=== PATIENT | male | born 1995 | race Caucasian/White ===

== ENCOUNTER 2020-02-25 10:45 | Inpatient (IN) | payer BC, OTHER ==
[2020-02-25] VITALS (15 sets, daily range): BP systolic 105–127; BP diastolic 54–77
[~2020-02-25] VITALS: Ht 182 cm; Wt 99.5 kg
--- NOTE | 2020-02-25 10:45 | NUR ---
PT ARRIVED PER EMS, PT FOUND UNRESPONSIVE AT HOME. PT HAS POSSIBLE TAKEN COCAINE,POT AND XANAX REPORTED BY PARENTS. PT PUPILS ARE LARGE AND DILATED. RR 8. PT HAS IV L AC BY EMS, PT HAS NS AND D10 RUNNING BY EMS. PT HAS BS 61 AT SCENE. PT ETCO2-10. RT HERE DR IN ROOM UPON ARRIVAL. PLAN TO INTUBATE 1050 ETOMIDATE 40MG IV GIVEN ORDERED. 1053 IV #20 STARTED IN R UPPER ARM LABS DRAWN. ROCURONIUM 50MG IV GIVEN ORDERED 1055 PT INTUBATED #8.0 ET TUBE 23@TEETH BY DR FRIAS. +BREATH SOUNDS AND ECO2 38 AT THIS X. 1059 #16 OG INSERTED AND SECURED TO ET TUBE. 1101 LAL #16 INSERTED W CLEAR URINE RETURNED, UA SENT 1103 PROPOFOL 30MCG/KG/MIN-18MLS PER HR 1107 ABG'S DRAWN BY RT 1118 PROPAFOL INCREASED TO 40MCG/KG/MIN 1145 PT TO GO TO CT WHEN SUCTIONED MOVING HANDS AROUND, VERSED 5MG IV GIVEN ORDERED. PROPAFOL INCREASED TO 50MCG/KG/MIN [address]
[2020-02-25] MEDS ORDERED: PROPOFOL DRIP (ICU) 100 ML IV ONE (10:55)
--- NOTE | 2020-02-25 11:05 | NUR ---
DR FRIAS SPOKE TO FAMILY ON PHONE
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
[2020-02-25 11:12] LABS: BASOPHILS % (AUTO) 0 % (0-10); EOSINOPHILS # (AUTO) 0.1 10^3/uL (0.0-0.3); EOSINOPHILS % (AUTO) 1 % (0-10); HEMATOCRIT 44 % (40-54); HEMOGLOBIN 15.3 G/DL (13.3-17.7); LYMPHOCYTES # (AUTO) 0.9 X 10^3 (1.0-4.0); LYMPHOCYTES % (AUTO) 10 % (12-44); MEAN CORPUSCULAR HEMOGLOBIN 31 PG (25-34); MEAN CORPUSCULAR HGB CONC 35 G/DL (32-36); MEAN CORPUSCULAR VOLUME 88 FL (80-99); MEAN PLATELET VOLUME 11.2 FL (7.4-10.4); MONOCYTES # (AUTO) 0.5 X 10^3 (0.0-1.0); MONOCYTES % (AUTO) 6 % (0-12); NEUTROPHILS # (AUTO) 7.2 X 10^3 (1.8-7.8); NEUTROPHILS % (AUTO) 83 % (42-75); PLATELET COUNT 197 10^3/uL (130-400); RED CELL DISTRIBUTION WIDTH 14.1 % (10.0-14.5); WHITE BLOOD COUNT 8.7 10^3/uL (4.3-11.0)
[2020-02-25 11:18] LABS: BILIRUBIN,URINE NEGATIVE (NEGATIVE); CLARITY,URINE CLEAR; COLOR,URINE YELLOW; GLUCOSE, URINE (UA) NEGATIVE (NEGATIVE); KETONES,URINE NEGATIVE (NEGATIVE); LEUKOCYTE ESTERASE ,URINE NEGATIVE (NEGATIVE); NITRITE,URINE NEGATIVE (NEGATIVE); PH,URINE 5.5 (5-9); PROTEIN,URINE NEGATIVE (NEGATIVE)
[2020-02-25 11:20] LABS: ABG BASE EXCESS 1.5 MMOL/L (-2.5-2.5); ABG OXYGEN SATURATION 97 % (94-100); ABG PCO2 48 MMHG (35-45); ABG PH 7.36 (7.37-7.43); ABG PO2 97 MMHG (79-93); ABG TCO2 27.9 MMOL/L (21.0-31.0); ALLENS TEST YES-POS; INSPIRED O2 40%; PATIENT TEMP 36.7; VENTILATOR YES
[2020-02-25 11:25] LABS: BACTERIA,URINE NEGATIVE /HPF; SQUAMOUS EPITHELIAL CELL,UR RARE /HPF
[2020-02-25] MEDS ORDERED: LACTATED RINGERS 1,000 ML IV ONE (11:26)
[2020-02-25 11:32] LABS: AMPHETAMINE SCREEN, URINE NEGATIVE (NEGATIVE); BARBITURATE SCREEN URINE NEGATIVE (NEGATIVE); BENZODIAZEPINES SCREEN URINE POSITIVE (NEGATIVE); CANNABINOID SCREEN, URINE POSITIVE (NEGATIVE); COCAINE SCREEN URINE POSITIVE (NEGATIVE); METHADONE STAT NEGATIVE (NEGATIVE); METHAMPHETAMINE SCREEN URINE S NEGATIVE (NEGATIVE); OPIATE SCREEN URINE NEGATIVE (NEGATIVE); OXYCODONE STAT NEGATIVE (NEGATIVE); PROPOXYPHENE STAT NEGATIVE (NEGATIVE); TRICYCLIC ANTIDEPRESSANTS SCRE NEGATIVE (NEGATIVE)
[2020-02-25 11:37] LABS: ALBUMIN 4.7 GM/DL (3.2-4.5); CHLORIDE 105 MMOL/L (98-107); POTASSIUM 4.4 MMOL/L (3.6-5.0); SODIUM 141 MMOL/L (135-145)
[2020-02-25 11:38] LABS: CALCIUM 9.7 MG/DL (8.5-10.1)
[2020-02-25 11:39] LABS: GLUCOSE 140 MG/DL (70-105); TOTAL PROTEIN 7.6 GM/DL (6.4-8.2)
[2020-02-25 11:40] LABS: CARBON DIOXIDE 26 MMOL/L (21-32)
[2020-02-25 11:41] LABS: BILIRUBIN,TOTAL 0.9 MG/DL (0.1-1.0)
[2020-02-25 11:43] LABS: ALKALINE PHOSPHATASE 68 U/L (40-136); CREATININE SERUM 1.04 MG/DL (0.60-1.30); GFR ESTIMATED > 60
[2020-02-25 11:44] LABS: BUN/CREATININE RATIO 9
[2020-02-25 11:46] LABS: ALANINE AMINOTRANSFERASE 20 U/L (0-55); MAGNESIUM 1.9 MG/DL (1.6-2.4); SALICYLATE < 5.0 MG/DL (5.0-20.0)
--- NOTE | 2020-02-25 11:51 | Diagnostic Imaging Report ---
INDICATION: Unresponsive. FINDINGS: ET tube tip lower thoracic trachea. OG catheter goes into the upper stomach. No effusion or pneumothorax. No free air beneath the diaphragm. Heart size upper limits. There is some mild perihilar vascular congestion and mild partial atelectasis. IMPRESSION: Upper limits heart size and central vasculature caliber. Mild atelectasis. Support apparatus projecting in good alignment. Dictated by: Dictated on workstation # [id number]
[2020-02-25 11:54] LABS: ACETAMINOPHEN < 10 UG/ML (10-30)
--- NOTE | 2020-02-25 11:55 | NUR ---
NS 1000CC FROM EMS INFUSED. LAC RINGERS STARTED
--- OUTSIDE RECORDS SUMMARY | 2020-02-25 11:56 | XMS REPORT | Continuity of Care Document ---
Author Organization Unknown Address Unknown Phone Unavailable Allergies Active Description Code Type Severity Reaction Onset Reported/Identified Relationship to Patient Clinical Status Yes NO KNOWN DRUG ALLERGIES UNKNOWN UNKNOWN Medications There is no data. Problems Date Dx Coded Attending Type Code Diagnosis Diagnosed By 11/10/2018 W 924.3 CONT USION OF TOE 11/10/2018 W S90.119A C ONTUSION OF UNSPECIFIED GREAT TOE WITHOUT DAMAGE TO NAIL, INITIAL ENCOUNTER 03/04/2019 Fidencio Camilo 381.01 ACUTE SEROUS OTITIS MEDIA 03/04/2019 Fidencio Camilo H65.02 ACUTE SEROUS OTITIS MEDIA, LEFT EAR 08/20/2019 Josh Stevenson 608.1 SPERMATOCELE 08/20/2019 Josh Stevenson S06.2X9D DIFFUSE TBI W LOSS OF CONSCIOUSNESS OF UNSP DURATION, SUBS 08/20/2019 Josh Stevenson T07.XXXD UNSPECIFIED MULTIPLE INJURIES, SUBSEQUENT ENCOUNTER 08/20/2019 Josh Stevenson V58.89 ENCOUNTER FOR OTHER SPECIFIED AFTERCARE 08/21/2019 Josh Stevenson 608.1 SPERMATOCELE 08/21/2019 Josh Stevenson S06.2X9D DIFFUSE TBI W LOSS OF CONSCIOUSNESS OF UNSP DURATION, SUBS 08/21/2019 Josh Stevenson T07.XXXD UNSPECIFIED MULTIPLE INJURIES, SUBSEQUENT ENCOUNTER 08/21/2019 Josh Stevenson V58.89 ENCOUNTER FOR OTHER SPECIFIED AFTERCARE Procedures There is no data. Results Test Result Range Other Culture - 04/28/17 16:47 PRELIM CULTURE RESULTS Moderate Group B Stre [id number] lab if sensitivity needed FINAL CULTURE RESULTS Moderate Group B Beta Hemolytic [id number] Further Workup done MEDIA PLATED Setup at 17:13 on 04/28/2017 Encounters ACCT No. Visit Date/Time Discharge Status Pt. Type Provider Facility Loc./Unit Complaint [id number] 11/29/2019 11:38:00 11/29/2019 23:59 :00 DIS Outpatient LANNY MARIE [id number] 08/14/2019 14:11:00 08/21/2019 15:48: 00 DIS Outpatient Josh Stevenson [id number] 08/13/2019 12:55:00 08/13/2019 23:59: 00 DIS Outpatient Josh Stevenson [id number] 08/13/2019 09:40:00 08/13/2019 23:59: 00 DIS Outpatient Josh Stevenson [id number] 03/04/2019 15:51:00 03/04/2019 16:40: 00 [facility] [id number] 04/28/2017 16:46:00 04/28/2017 23:59: 00 DIS Outpatient TannerLorenza [id number] 08/29/2019 13:56:09 Document Registration [id number] 11/10/2018 13:08:00 Document Registration [id number] 02/25/2020 11:45:[address] Inpatient MEJIA POPE, JUSTYNA Miller [facility] ICU ENCEPHALOPATHY;DRUG O/D
--- NOTE | 2020-02-25 12:15 | Diagnostic Imaging Report ---
PROCEDURE: CT head without contrast. TECHNIQUE: Multiple contiguous axial images were obtained through the brain without the use of intravenous contrast. Auto Exposure Controls were utilized during the CT exam to meet ALARA standards for radiation dose reduction. INDICATION: Unresponsive and overdose. COMPARISON: No prior studies are available for comparison. FINDINGS: There is an area of encephalomalacia in the left frontal lobe, likely from prior infarct. Small area of low density in the right posterior centrum semiovale as well as the right frontal lobe periventricular white matter is seen which appears chronic. No definite sulcal effacement or midline shift is detected. No acute intra-axial or extra-axial hemorrhage is detected. Cisterns are patent. Visualized paranasal sinuses are clear. IMPRESSION: Chronic changes. No acute intracranial process is detected. Dictated by: Dictated on workstation # [id number]
--- NOTE | 2020-02-25 12:35 | NUR ---
PT TO ICU BY CART, PT HAS LAC RINGERS INFUSING, PROPAFOL AT 50MCG/KG/MIN INFUSING PER PUMP. PT ON PORTABLE VENT, OG IN PLACE, LAL IN PLACE. DR FRIAS SPOKE W FAMILY CO PT CARE
[2020-02-25] MEDS ORDERED: DexMEDEtomidine 250 ML DRIP 250 ML IV ONE (12:55)
[2020-02-25] MEDS ORDERED: ONDANSETRON 4 MG/2 ML (SDV) Z0FRAN IV PRN (13:00)
[2020-02-25] MEDS ORDERED: ACETAMINOPHEN 650 MG SUPP (TYLENOL) PR PRN (13:00)
[2020-02-25] MEDS ORDERED: CATHETER FLUSH 10 ML SYR IV PRN (13:15)
[2020-02-25] MEDS ORDERED: DexMEDEtomidine 250 ML DRIP 250 ML IV SCH (13:17)
[2020-02-25] MEDS: 1/2 NS IV SOLUTION 1,000 ML IV SCH ×2 (13:19→21:44)
--- NOTE | 2020-02-25 13:26 | NUR ---
This nurse received a telephone order from for precedex IV drip per protocol. This nurse spoke with on the phone and notified him that he is consulted on patient.
--- OUTSIDE RECORDS SUMMARY | 2020-02-25 13:38 | XMS REPORT | Continuity of Care Document ---
[...] PRELIM CULTURE RESULTS Moderate Group B Stre [id number] lab if sensitivity needed FINAL CULTURE RESULTS Moderate Group B Beta Hemolytic [id number] Further Workup done MEDIA PLATED Setup at 17:13 on 04/28/2017 Encounters ACCT No. Visit Date/Time Discharge Status Pt. Type Provider Facility Loc./Unit Complaint [id number] 11/29/2019 11:38:00 11/29/2019 23:59 :00 DIS Outpatient LANNY MARIE [id number] 08/14/2019 14:11:00 08/21/2019 15:48: 00 DIS Outpatient Josh Stevenson [id number] 08/13/2019 12:55:00 08/13/2019 23:59: 00 DIS Outpatient Josh Stevenson [id number] 08/13/2019 09:40:00 08/13/2019 23:59: 00 DIS Outpatient Josh Stevenson [id number] 03/04/2019 15:51:00 03/04/2019 16:40: 00 DIS [facility] [id number] 04/28/2017 16:46:00 04/28/2017 23:59: 00 DIS Outpatient TannerLorenza [id number] 08/29/2019 13:56:09 Document Registration [id number] 11/10/2018 13:08:00 Document Registration [id number] 02/25/2020 11:45:[address] Inpatient MEJIA POPE, JUSTYNA Miller [facility] ICU ENCEPHALOPATHY;DRUG O/D
--- NOTE | 2020-02-25 13:40 | NUR ---
Verbal order received from for Lovenox 40mg daily starting now for VTE prophylaxis
[2020-02-25] MEDS ORDERED: MIDAZOLAM 5 MG/5 ML (VERSED) VIAL IJ ONE (13:41)
[2020-02-25] MEDS ORDERED: ETOMIDATE IV SOLN 20 MG/10 ML VIAL IV ONE (13:41)
[2020-02-25] MEDS ORDERED: ROCURONIUM 10 MG/ML 5 ML SYRINGE IV ONE (13:41)
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
[2020-02-25 14:01] LABS: ABG OXYGEN SATURATION 99 % (94-100); ABG PCO2 49 MMHG (35-45); ABG PO2 127 MMHG (79-93); ABG TCO2 27.6 MMOL/L (21.0-31.0); ALLENS TEST YES-POS; INSPIRED O2 RA; PATIENT TEMP 37; VENTILATOR NO
[2020-02-25 14:04] LABS: ABG PH 7.34 (7.37-7.43)
--- NOTE | 2020-02-25 14:18 | NUR ---
This nurse notified with teleicu about patients critical ph from his ABG. No new orders received att. Will continue to monitor.
[2020-02-25] MEDS: ENOXAPARIN 40 MG/0.4 ML (LOVENOX) SYR SC SCH (14:34)
[2020-02-25] MEDS: RT-ALBUTEROL/IPRATROPIUM 3 ML (DUONEB) VIAL INH SCH (20:56)
[2020-02-26] VITALS (17 sets, daily range): BP systolic 110–147; BP diastolic 61–92
[2020-02-26] MEDS: RT-ALBUTEROL/IPRATROPIUM 3 ML (DUONEB) VIAL INH SCH ×3 (01:43→13:54)
[2020-02-26 03:37] LABS: ABG BASE EXCESS 1.4 MMOL/L (-2.5-2.5); ABG OXYGEN SATURATION 99 % (94-100); ABG PCO2 47 MMHG (35-45); ABG PH 7.36 (7.37-7.43); ABG PO2 112 MMHG (79-93); ABG TCO2 27.9 MMOL/L (21.0-31.0)
[2020-02-26 03:38] LABS: BASOPHILS % (AUTO) 0 % (0-10); EOSINOPHILS # (AUTO) 0.1 10^3/uL (0.0-0.3); EOSINOPHILS % (AUTO) 1 % (0-10); HEMATOCRIT 42 % (40-54); HEMOGLOBIN 14.4 G/DL (13.3-17.7); LYMPHOCYTES # (AUTO) 1.2 X 10^3 (1.0-4.0); LYMPHOCYTES % (AUTO) 18 % (12-44); MEAN CORPUSCULAR HEMOGLOBIN 31 PG (25-34); MEAN CORPUSCULAR HGB CONC 34 G/DL (32-36); MEAN CORPUSCULAR VOLUME 90 FL (80-99); MEAN PLATELET VOLUME 11.2 FL (7.4-10.4); MONOCYTES # (AUTO) 0.7 X 10^3 (0.0-1.0); MONOCYTES % (AUTO) 12 % (0-12); NEUTROPHILS # (AUTO) 4.4 X 10^3 (1.8-7.8); NEUTROPHILS % (AUTO) 69 % (42-75); PLATELET COUNT 153 10^3/uL (130-400); WHITE BLOOD COUNT 6.4 10^3/uL (4.3-11.0)
[2020-02-26 03:39] LABS: ALLENS TEST YES-POS; INSPIRED O2 30%; PATIENT TEMP 36.2; VENTILATOR YES
[2020-02-26 03:47] LABS: CHLORIDE 110 MMOL/L (98-107); POTASSIUM 3.8 MMOL/L (3.6-5.0); SODIUM 142 MMOL/L (135-145)
[2020-02-26 03:48] LABS: CALCIUM 8.8 MG/DL (8.5-10.1); GLUCOSE 108 MG/DL (70-105)
[2020-02-26 03:50] LABS: CARBON DIOXIDE 23 MMOL/L (21-32)
[2020-02-26 03:52] LABS: CREATININE SERUM 0.83 MG/DL (0.60-1.30); GFR ESTIMATED > 60; PHOSPHORUS 3.3 MG/DL (2.3-4.7)
[2020-02-26 03:53] LABS: BUN/CREATININE RATIO 7
[2020-02-26 03:54] LABS: MAGNESIUM 1.9 MG/DL (1.6-2.4)
[2020-02-26] MEDS: POTASSIUM CL 10MEQ/50ML IVPB 50 ML IV SCH (05:09)
[2020-02-26] MEDS: MAGNESIUM 1 GM/100 ML IVPB 100 ML IV SCH (05:09)
[2020-02-26] MEDS: KCL 20 MEQ TAB (K-DUR) PO SCH (05:09)
[2020-02-26] MEDS: 1/2 NS IV SOLUTION 1,000 ML IV SCH ×2 (06:19→15:41)
--- NOTE | 2020-02-26 06:50 | Pulmonary Consultation ---
History of Present Illness History of Present Illness Date Seen by Provider: February 26, 2020 Time Seen by Provider: 06:47 Date of Admission Allergies and Home Medications Allergies Coded Allergies: No Known Drug Allergies (Unverified , 02/25/20) Home Medications No Active Prescriptions or Reported Meds Past Gktnrno-Vhbtul-Fnxhxt Hx Past Med/Social Hx: Reviewed Nursing Past Med/Soc Hx Patient Social History Alcohol Use: Denies Use Recreational Drug Use: Yes Drug of Choice: benzos, cocaine, THC Smoking Status: Unknown if Ever Smoked Recent Foreign Travel: No Contact w/Someone Who Travel: No Recent Infectious Disease Expo: No Recent Hopitalizations: No Physical Abuse: No Sexual Abuse: No Seasonal Allergies Seasonal Allergies: No Past Medical History Respiratory: No Cardiac: No Neurological: Yes Traumatic Brain Injury Genitourinary: No Gastrointestinal: No Musculoskeletal: No Endocrine: No HEENT: No Cancer: No Psychosocial: No Integumentary: No Family Medical History Reviewed Nursing Family Hx Sepsis Event Evaluation Height, Weight, BMI Height: '" Weight: lbs. oz. kg; 30.00 BMI Method: Exam Exam Vital Signs Date Time Temp Pulse Resp B/P (MAP) Pulse Ox O2 Delivery O2 Flow Rate FiO2 02/26/20 06:00 52 17 128/79 (95) 98 Mechanical Ventilator 25.00 02/26/20 05:00 55 18 130/81 (97) 98 Mechanical Ventilator 25.00 02/26/20 04:00 95 Mechanical Ventilator 25 02/26/20 04:00 58 17 133/84 (100) 98 Mechanical Ventilator 25.00 02/26/20 03:28 36.2 Mechanical Ventilator 25.00 02/26/20 03:00 56 17 139/80 (99) 98 Mechanical Ventilator 30.00 02/26/20 02:37 68 156/90 02/26/20 02:00 52 18 138/85 (102) 94 Mechanical Ventilator 30.00 02/26/20 01:44 53 20 93 30 02/26/20 01:00 57 02/26/20 01:00 57 17 119/71 (87) 95 Mechanical Ventilator 30.00 02/26/20 00:00 95 Mechanical Ventilator 30 02/26/20 00:00 55 18 122/74 (90) 96 Mechanical Ventilator 30.00 02/25/20 23:00 56 19 119/74 (89) 95 Mechanical Ventilator 30.00 02/25/20 22:06 36.5 02/25/20 22:00 57 17 123/73 (90) 95 Mechanical Ventilator 30.00 02/25/20 21:00 53 18 124/76 (92) 95 Mechanical Ventilator 30.00 02/25/20 20:57 56 18 95 30 02/25/20 20:00 57 17 118/75 (89) 95 Mechanical Ventilator 30.00 02/25/20 20:00 95 Mechanical Ventilator 30 02/25/20 19:16 36.5 02/25/20 19:00 Mechanical Ventilator 30.00 02/25/20 19:00 64 02/25/20 19:00 64 18 113/66 (82) 96 Mechanical Ventilator 30.00 02/25/20 18:00 63 17 113/67 (82) 96 Mechanical Ventilator 40.00 02/25/20 17:40 36.9 02/25/20 17:33 65 112/62 02/25/20 17:00 65 17 112/62 (79) 96 Mechanical Ventilator 40.00 02/25/20 16:00 70 17 105/55 (72) 95 Mechanical Ventilator 40.00 02/25/20 16:00 Mechanical Ventilator 40 02/25/20 15:43 36.7 89 94 02/25/20 15:37 36.3 02/25/20 15:00 90 18 112/73 (86) 98 Mechanical Ventilator 40.00 02/25/20 14:57 89 18 94 30 02/25/20 14:56 Mechanical Ventilator 40 02/25/20 14:00 101 17 110/74 (86) 96 Mechanical Ventilator 40.00 02/25/20 13:30 37.1 02/25/20 13:24 103 112/54 02/25/20 13:19 103 112/54 02/25/20 13:15 112 39 99 40 02/25/20 13:00 102 02/25/20 13:00 102 19 127/69 (88) 98 Mechanical Ventilator 40.00 02/25/20 12:35 108 16 110/58 98 Mechanical Ventilator 02/25/20 11:13 103 18 99 40 02/25/20 11:03 98 129/101 02/25/20 10:45 36.7 98 8 129/101 (110) 100 Room Air I & O 02/26/20 07:00 Intake Total 3700 ml Output Total 3900 ml Balance -200 ml Height & Weight Height: '" Weight: lbs. oz. kg; 30.00 BMI Method: General Appearance: Other (healthy appearing young male, intubated and sedated) HEENT: Moist Mucous Membranes, Other (OG in place) Neck: Normal Inspection, Supple Respiratory: Lungs Clear, Normal Breath Sounds, Other (on vent) Cardiovascular: Regular Rate, Rhythm, No Murmur Capillary Refill: Less Than 3 Seconds Peripheral Pulses: 2+ Radial Pulses (R), 2+ Radial Pulses (L) Gastrointestinal: non tender, soft, no organomegaly, no pulsatile mass Extremity: Normal Capillary Refill, No Calf Tenderness, No Pedal Edema Neurologic/Psychiatric: Other (sedated, appears comfortable) Skin: Normal Color, Warm/Dry Results Lab Laboratory Tests 02/25/20 10:55 02/26/20 03:08 Assessment/Plan Assessment/Plan Acute Respiratory Failure -Wake pt up and extubate Multidrug overdose -Education -Check echo since positive for cocaine h/o of TBI DVT PPX: loveitzelx CHASE KELLEY DO February 26, 2020 06:50
[2020-02-26 06:54] LABS: ALBUMIN 3.9 GM/DL (3.2-4.5)
[2020-02-26 06:57] LABS: TOTAL PROTEIN 6.2 GM/DL (6.4-8.2)
[2020-02-26 06:59] LABS: BILIRUBIN,TOTAL 1.1 MG/DL (0.1-1.0)
[2020-02-26 07:00] LABS: ALKALINE PHOSPHATASE 66 U/L (40-136)
[2020-02-26 07:03] LABS: ALANINE AMINOTRANSFERASE 26 U/L (0-55)
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
--- NOTE | 2020-02-26 08:42 | Diagnostic Imaging Report ---
INDICATION: Dyspnea. Time of exam 3:15 AM Correlation is made with prior chest one day earlier. Endotracheal tube has tip above the ruthy. NG tube has been removed. There has been an improved aeration to the perihilar regions bilaterally. Central congestive changes have improved. No infiltrates are seen. There is no effusion or pneumothorax. IMPRESSION: Improved aeration of both lungs when compared with examination one day earlier. Dictated by: Dictated on workstation # [id number]
--- NOTE | 2020-02-26 09:00 | Speech Therapy Progress Note ---
Therapy Progress Note ST attempted to complete Bedside Dysphagia Evaluation, however patient stated he would rather "sleep in". ST to follow up later this date. HERNESTO DE DIOS February 26, 2020 09:00
--- NOTE | 2020-02-26 10:25 | NUR ---
Dr Brennan notified of pt change to cardiac step down and advanced diet as directed by speech eval.
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
--- NOTE | 2020-02-26 13:52 | Physician Query Clarification ---
PQ-Uncertain Diagnosis Admission/Discharge Admission Date: February 25, 2020 at 11:45 Discharge Date: The medical record reflects the following clinical scenario: History/Risk Factors: Multidrug overdose Acute respiratory failure Obtunded Clinical Findings:Unresponsive, pH 7.36, pC02 48, p02 97, 02 sats 97%, 8mm pupils bilateral, modified GCS 5. Treatment: Intubation with mechanical ventilation. Question: Is Acute encephalopathy a clinically valid diagnosis? Acute encephalopathy was documented in the ED record impression by Dr. Montalvo with no further documentation in the medical record. Please document a response in Progress Note or Discharge Summary. 1. Yes, clinically valid, condition resolved. 2. No, condition ruled out. 3. Other, with explanation of clinical findings. 4. Undetermined, no explanation for clinical findings. PHYSICIAN RESPONSE Diagnosis clinically valid: Yes, Conditon resolved Please remember a lack of response to the above will prompt a phone page by [facility]/Coding staff. In responding to this query, please exercise your independent professional judgment. The purpose of this communication is to more accurately reflect the complexity of your patients condition. The fact that a question is asked does not imply that any particular answer is desired or expected. Thank you for your timely response to this clarification. Requestors name: Yvrose Maki [facility] Phone # ext [phone] or [phone] THIS PHYSICIAN QUERY FORM IS A PERMANENT PART OF THE MEDICAL RECORD YVROSE MAKI February 26, 2020 13:52 JUSTYNA BA MD February 26, 2020 15:29
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
[2020-02-26] MEDS: ENOXAPARIN 40 MG/0.4 ML (LOVENOX) SYR SC SCH (15:43)
[2020-02-26] MEDS ORDERED: RT-ALBUTEROL/IPRATROPIUM 3 ML (DUONEB) VIAL INH PRN (16:00)
[2020-02-26] MEDS ORDERED: ACETAMINOPHEN 500 MG TAB (TYLENOL) ONE (19:36)
[2020-02-26] MEDS ORDERED: ACETAMINOPHEN 500 MG TAB (TYLENOL) PO PRN (20:00)
[2020-02-27] VITALS: BP 117/70
[2020-02-27 03:25] LABS: BASOPHILS % (AUTO) 0 % (0-10); EOSINOPHILS # (AUTO) 0.1 10^3/uL (0.0-0.3); EOSINOPHILS % (AUTO) 1 % (0-10); HEMATOCRIT 40 % (40-54); HEMOGLOBIN 13.8 G/DL (13.3-17.7); LYMPHOCYTES # (AUTO) 1.7 X 10^3 (1.0-4.0); LYMPHOCYTES % (AUTO) 32 % (12-44); MEAN CORPUSCULAR HEMOGLOBIN 31 PG (25-34); MEAN CORPUSCULAR HGB CONC 35 G/DL (32-36); MEAN CORPUSCULAR VOLUME 89 FL (80-99); MEAN PLATELET VOLUME 11.3 FL (7.4-10.4); MONOCYTES # (AUTO) 0.7 X 10^3 (0.0-1.0); MONOCYTES % (AUTO) 13 % (0-12); NEUTROPHILS # (AUTO) 2.9 X 10^3 (1.8-7.8); NEUTROPHILS % (AUTO) 54 % (42-75); PLATELET COUNT 167 10^3/uL (130-400); RED CELL DISTRIBUTION WIDTH 13.4 % (10.0-14.5); WHITE BLOOD COUNT 5.4 10^3/uL (4.3-11.0)
[2020-02-27 03:45] LABS: BUN/CREATININE RATIO 8; CALCIUM 8.7 MG/DL (8.5-10.1); CARBON DIOXIDE 25 MMOL/L (21-32); CHLORIDE 107 MMOL/L (98-107); CREATININE SERUM 0.84 MG/DL (0.60-1.30); GFR ESTIMATED > 60; GLUCOSE 89 MG/DL (70-105); MAGNESIUM 1.9 MG/DL (1.6-2.4); PHOSPHORUS 3.5 MG/DL (2.3-4.7); POTASSIUM 3.5 MMOL/L (3.6-5.0); SODIUM 143 MMOL/L (135-145); TRIGLYCERIDES 149 MG/DL (<150)
[2020-02-27 04:00] VITALS: BP 123/68
[2020-02-27] MEDS: POTASSIUM CL 10MEQ/50ML IVPB 50 ML IV SCH (04:04)
[2020-02-27] MEDS: MAGNESIUM 1 GM/100 ML IVPB 100 ML IV SCH (04:04)
[2020-02-27] MEDS: KCL 20 MEQ TAB (K-DUR) PO SCH (04:04)
--- NOTE | 2020-02-27 05:09 | Pulmonary Progress Note ---
Subjective Time Seen by a Provider: 05:08 Sepsis Event Evaluation Height, Weight, BMI Height: '" Weight: lbs. oz. kg; 30.00 BMI Method: Exam Exam Vital Signs Date Time Temp Pulse Resp B/P (MAP) Pulse Ox O2 Delivery O2 Flow Rate FiO2 02/27/20 04:00 36.0 76 123/68 (86) 97 Room Air 02/27/20 00:00 36.9 70 117/70 (86) 96 Room Air 02/26/20 21:30 37.6 02/26/20 21:00 100 Room Air 02/26/20 20:01 38.0 02/26/20 20:00 38.0 119 14 134/90 (105) 97 Room Air 02/26/20 16:00 100 Room Air 02/26/20 16:00 38.1 83 14 119/64 (82) 98 Room Air 02/26/20 16:00 119/64 (82) Room Air 02/26/20 15:00 118 21 Room Air 02/26/20 14:11 37.5 67 93 21 02/26/20 14:00 57 12 100 Room Air 02/26/20 13:56 Room Air 93 02/26/20 13:00 110 27 High Flow N/C 2.00 02/26/20 12:56 133 02/26/20 12:06 37.5 02/26/20 12:00 56 23 High Flow N/C 2.00 02/26/20 12:00 100 High Flow N/C 2.00 02/26/20 11:00 54 15 147/69 (95) 100 High Flow N/C 2.00 02/26/20 10:00 54 16 119/75 (90) 100 High Flow N/C 2.00 02/26/20 09:00 65 9 116/61 (79) 99 High Flow N/C 2.00 02/26/20 08:02 36.2 02/26/20 08:00 99 High Flow N/C 3.00 02/26/20 08:00 75 22 110/62 (78) 98 High Flow N/C 2.00 02/26/20 07:30 High Flow N/C 2.00 02/26/20 07:00 64 19 113/92 (99) 98 Mechanical Ventilator 25.00 5/20/20 06:54 59 02/26/20 06:50 58 18 99 25 02/26/20 06:00 52 17 128/79 (95) 98 Mechanical Ventilator 25.00 I & O 02/27/20 07:00 Intake Total 1350 ml Output Total 1450 ml Balance -100 ml Height & Weight Height: '" Weight: lbs. oz. kg; 30.00 BMI Method: General Appearance: No Apparent Distress, WD/WN HEENT: Moist Mucous Membranes, Other (OG in place) Neck: Normal Inspection, Supple Respiratory: Lungs Clear, No Respiratory Distress Cardiovascular: Regular Rate, Rhythm, No Murmur Capillary Refill: Less Than 3 Seconds Peripheral Pulses: 2+ Radial Pulses (R), 2+ Radial Pulses (L) Gastrointestinal: non tender, soft, no organomegaly, no pulsatile mass Extremity: Normal Capillary Refill, No Calf Tenderness, No Pedal Edema Neurologic/Psychiatric: Alert, Oriented x3 Skin: Normal Color, Warm/Dry Results Lab Laboratory Tests 02/25/20 10:55 02/26/20 03:08 02/27/20 02:52 Assessment/Plan Assessment/Plan Acute Respiratory Failure -Wake pt up and extubate Multidrug overdose -Education -Check echo since positive for cocaine h/o of TBI DVT PPX: lovenox CHASE KELLEY DO February 27, 2020 05:08
[2020-02-27 07:30] VITALS: BP 141/101
--- NOTE | 2020-02-27 08:14 | Discharge Summary ---
Diagnosis/Chief Complaint Date of Admission February 25, 2020 at 11:45 Date of Discharge Discharge Date: February 27, 2020 Admission Diagnosis Acute Respiratory Failure Primary Care Discharge Summary Procedures/Consulations Pulmonology- Dr Tovar Discharge Physical Exam Allergies: Coded Allergies: No Known Drug Allergies (Unverified , 02/25/20) Vitals & I&Os Vital Signs Date Time Temp Pulse Resp B/P (MAP) Pulse Ox O2 Delivery O2 Flow Rate FiO2 02/27/20 11:31 02/27/20 08:34 100 Room Air 02/27/20 07:30 36.8 104 18 02/26/20 14:11 21 02/26/20 14:00 General Appearance: No Apparent Distress, WD/WN Respiratory: Lungs Clear, No Respiratory Distress Cardiovascular: Regular Rate, Rhythm, No Murmur Neurologic/Psychiatric: Alert, Oriented x3 Hospital Course Pt was admitted to the hospital du to acute respiratory failure from multi drug overdose and encephalopathy. He was successfully extubated the day after admiss ion and did well. He had an uneventful hospital stay. Sr. Manager [employer] was contact and resources were provided for substance abuse cessation. He was discharged home in stable condition. Labs (last 24 hrs) Microbiology 02/25/20 MRSA Screen - Final, Complete MRSA not isolated Patient resulted labs reviewed. Pending Labs Imaging: Reviewed Imaging Report Discussion & Recommendations Discharge Planning: >30 minutes discharge planning Discharge Home Medications: Active Scripts Active No Active Prescriptions or Reported Medications Instructions to patient/family Please see electronic discharge instructions given to patient. Clinical Quality Measures DVT/VTE Risk/Contraindication: RFS Level Per Nursing on Admit: 1=Low/No VTE PPX JUSTYNA BA MD February 27, 2020 08:14
--- NOTE | 2020-02-27 08:53 | Discharge Inst-Simple/Standard ---
Discharge Inst-Standard Patient Instructions/Follow Up Plan of Care/Instructions/FU: Please continue to take your medications as written. Please follow up with your primary care doctor to follow up this hospital stay. Activity as Tolerated: Yes Discharge Diet: No Restrictions Return to The Hospital For: Chest pain, shortness of breath, confusion, if you feel you are getting worse. JUSTYNA BA MD February 27, 2020 08:53
[2020-02-27] MEDS ORDERED: KCL 20 MEQ TAB (K-DUR) PO SCH (09:00)
== END 2020-02-27 11:20 | disposition home or self-care (01) | DRG 917 ==
LOC: ER 10:47 → ICU 11:45
PROVIDERS: ADMIT Family Medicine; ATTEND Family Medicine
PROC: 5A1935Z Respiratory Ventilation, Less than 24 Consecutive Hours (ICD-10-PCS; principal; 2020-02-25)
PROC: 0BH17EZ Insertion of Endotracheal Airway into Trachea, Via Natural or Artificial Opening (ICD-10-PCS; 2020-02-25)
DX: T40.5X1A Poisoning by cocaine, accidental (unintentional), initial encounter (principal); T42.4X1A Poisoning by benzodiazepines, accidental (unintentional), initial encounter; T40.7X1A Poisoning by cannabis (derivatives), accidental (unintentional), initial encounter; J96.00 Acute respiratory failure, unspecified whether with hypoxia or hypercapnia; G92 Toxic encephalopathy; R73.9 Hyperglycemia, unspecified; Z87.820 Personal history of traumatic brain injury
CPT/HCPCS: 31500; 36415; 36600; 51702; 70450; 71045; 80048; 80053; 80306; 80320; 80329; 81000; 82550; 82805; 82962; 83735; 84100; 84478; 84484; 85025; 87070; 87081; 87205; 93005; 93306; 94002; 94003; 94799